=== PATIENT | male | born 1980 | race Caucasian/White ===

== ENCOUNTER 2023-11-28 10:00 | Emergency (ER) | payer OTHER ==
[2023-11-28 10:41] VITALS: BP 140/110; PULSE 92; RESP 20; TEMP 98.2; BMI 32.1
[2023-11-28] MEDS ORDERED: IBUPROFEN 400 MG TABLET (FP) PO ONE (11:14)
[2023-11-28] MEDS: IBUPROFEN 400 MG TABLET (FP) PO ONE (11:16)
[2023-11-28 11:34] LABS: ALBUMIN 4.6 g/dl (3.4-5.0); BILIRUBIN,TOTAL 0.4 mg/dl (0.2-1); CALCIUM 9.4 mg/dl (8.5-10.1); CREATININE 0.9 mg/dl (0.6-1.3); TOT PROT 6.7 g/dl (6.4-8.2)
== END 2023-11-28 13:22 | disposition home or self-care (01) ==
LOC: FER 10:00
DX: R07.2 Precordial pain (principal)
CPT/HCPCS: 36415; 71046-TC-FY; 80053; 82550; 82553; 84484; 93005; 99285-25